=== PATIENT | male | born 1990 | race Caucasian/White ===

== ENCOUNTER 2024-01-09 06:56 | Emergency (ER) | payer BC, MEDICAID ==
[~2024-01-09] VITALS: Ht 193 cm; Wt 80.0 kg
[~2024-01-09 06:56] MED LIST: CLIN-97 PO; ONDA8TAB6 PO
[2024-01-09 10:46] VITALS: BP 106/76; PULSE 68; RESP 14; TEMP 98.1; O2SAT 98
== END 2024-01-09 16:50 | disposition home or self-care (01) ==
LOC: ER 06:57
DX: F11.23 Opioid dependence with withdrawal (principal); F12.90 Cannabis use, unspecified, uncomplicated; Z79.899 Other long term (current) drug therapy
CPT/HCPCS: 99281